=== PATIENT | female | born 1965 | race Caucasian/White ===

== ENCOUNTER → 2021-11-16 13:35 | Outpatient (BNVA) | payer MEDICAID, SELFPAY | PROVIDERS: Family Provider Specialist; Visit Provider Podiatrist Foot & Ankle Surgery | DX: I73.9 Peripheral vascular disease, unspecified (principal); L84 Corns and callosities; M21.41 Flat foot [pes planus] (acquired), right foot; M21.42 Flat foot [pes planus] (acquired), left foot; M20.41 Other hammer toe(s) (acquired), right foot; M20.42 Other hammer toe(s) (acquired), left foot | CPT/HCPCS: 11055; 11721 ==

== ENCOUNTER → 2022-01-10 09:49 | Outpatient (BNVA) | payer MEDICAID, SELFPAY | PROVIDERS: Family Provider Specialist; Visit Provider Physician Assistant | DX: M43.17 Spondylolisthesis, lumbosacral region (principal); M47.22 Other spondylosis with radiculopathy, cervical region; M51.37 Other intervertebral disc degeneration, lumbosacral region | CPT/HCPCS: 72050; 72110; 99204; 99205 ==

== ENCOUNTER → 2022-02-25 09:48 | Outpatient (BNVA) | payer MEDICAID, SELFPAY | PROVIDERS: Family Provider Specialist; Visit Provider Anesthesiology Pain Medicine | DX: G89.29 Other chronic pain (principal); M43.17 Spondylolisthesis, lumbosacral region; M47.22 Other spondylosis with radiculopathy, cervical region; M51.37 Other intervertebral disc degeneration, lumbosacral region; M79.604 Pain in right leg; M79.605 Pain in left leg; Z79.891 Long term (current) use of opiate analgesic | CPT/HCPCS: 99204 ==

== ENCOUNTER → 2022-03-20 13:55 | Outpatient (BNVA) | payer MEDICAID, SELFPAY | PROVIDERS: Family Provider Specialist; Visit Provider Anesthesiology Pain Medicine | DX: M54.16 Radiculopathy, lumbar region (principal); G89.29 Other chronic pain; M54.2 Cervicalgia | CPT/HCPCS: 64483; 64484; J1100; J3490 ==

== ENCOUNTER → 2022-04-09 08:46 | Outpatient (BNVA) | payer MEDICAID, SELFPAY | PROVIDERS: Family Provider Specialist; Visit Provider Anesthesiology Pain Medicine | DX: G89.29 Other chronic pain (principal); M43.17 Spondylolisthesis, lumbosacral region; M47.22 Other spondylosis with radiculopathy, cervical region; M51.37 Other intervertebral disc degeneration, lumbosacral region; M79.604 Pain in right leg; M79.605 Pain in left leg | CPT/HCPCS: 99213 ==